=== PATIENT | female | born 1995 | race Hispanic/Latino ===

== ENCOUNTER 2021-01-16 17:44 | Emergency (ER) | payer BC ==
--- NOTE | 2021-01-16 18:46 | ULT ---
TRANSABDOMINAL AND ENDOVAGINAL PELVIC ULTRASOUND: HISTORY: patient. Vaginal bleeding x4 days. COMPARISON: None. TECHNIQUE: Transabdominal and endovaginal imaging of the pelvis is performed. Ovaries are interrogated with Ramsey -scale, color-flow and Doppler imaging and spectral wave-form analysis. FINDINGS: Uterus: There is a solid echotexture mass in the superior midportion of the uterus displacing the end ometrium to the left, compatible with a 2.3 x 2.4 x 2.8 cm fibroid. Uterus: Measures 8.0 x 4.8 x 6.4 cm. Endometrium: Within the endometrium there appears be an irregularly-shaped gestational sac. There is evidence of a yolk sac and pole. There is no evidence of heart tones. Prince-rump length is 0.42 cm, suggesting a gestational age of 6 weeks 1 day. Subchorionic hemorrhage: None. Nabothian cysts in the cervix are noted. Free fluid: Small amount of free fluid in the cul-de-sac. Right ovary: Normal echotexture. Right ovary: Measures 1.7 x 2.2 x 1.2 cm. Left ovary: Anechoic focus measuring 1.7 x 1.3 x 1.7 cm, compatible with a cyst. Left ovary mmeasures 2.6 x 2.7 x 3.4 cm. Ovarian Doppler: There is vascular flow to the left and right ovary. IMPRESSION: 1. Uterine leiomyoma. 2. Single intrauterine gestation. Gestational age by crown-rump length is 6 weeks 1 day. Absent heart tones may be due to early intrauterine versus a nonviable intrauterine . Follow-up ultrasound and serial beta hCGs are recommended. Transcribed Date/Time: 01/16/2021 7:33 PM
[2021-01-16 19:04] LABS: #Basophils 0.1 thou/uL (0.0-0.2); #Eosinphils 0.2 thou/uL (0.0-0.7); #Lymphocytes 2.7 thou/uL (1.20-3.40); #Monocytes 0.6 thou/uL (0.11-0.59); #Neutrophils 4.6 thou/uL (1.40-6.50); %Basophils 0.9 % (0.0-1.0); %Eosinophils 2.8 % (0.0-10.0); %Lymphocytes 32.9 % (21.0-51.0); %Neutrophils 56.5 % (42.0-75.0); Hemoglobin 12.9 g/dL (12.0-16.0); Mean Corpuscular HGB CONC 35.2 g/dL (32.0-36.0); Mean Corpuscular Hemoglobin 32.1 pg (27.0-31.0); Mean Platelet Volume 6.3 fL (7.4-10.4); Platelet Count 287 thou/uL (130-400); RBC Distribution Width 11.5 % (11.5-14.5); Red Blood Cell (RBC) Count 4.02 mill/uL (4.20-5.40); White Blood Cell (WBC) Count 8.2 thou/uL (4.8-10.8)
[2021-01-16 19:26] LABS: ALT (SGPT) 16 U/L (8-55); AST (SGOT) 13 U/L (5-34); Albumin 4.4 g/dL (3.5-5.0); Alkaline Phosphatase 73 U/L (40-110); Anion Gap 12 mmol/L (10-20); BUN (Urea Nitrogen) 12 mg/dL (7.0-18.7); Bilirubin, Total 0.2 mg/dL (0.2-1.2); Calc. Creatinine Clearance 0 mL/min (70-130); Calcium 9.6 mg/dL (7.8-10.44); Carbon Dioxide 22 mmol/L (22-29); Chloride 107 mmol/L (98-107); Globulin 3.6 g/dL (2.4-3.5); Glucose 99 mg/dL (70-105); Potassium 3.9 mmol/L (3.5-5.1); Sodium 137 mmol/L (136-145)
[2021-01-16 21:24] LABS: Bacteria/HPF None Seen HPF (None Seen); Bilirubin Negative (Negative); Blood, Urine 3+ (Negative); Clarity Clear (Clear); Glucose, Urine (Dipstick) Normal (Negative); Ketone, Urine Negative (Negative); Leukocyte Negative Leu/uL (Negative); Nitrite Negative (Negative); Protein, Urine (Dipstick) Negative (Neg-Trace); RBC/HPF Greater than 50 HPF (0-3); Squamous Epithelial 0-3 HPF (0-3); Urobilinogen Normal mg/dL (Less than 2); WBC/HPF 0-3 HPF (0-3)
[2021-01-18 21:53] LABS: Chlamydia by PCR Not Detected (NotDetected); GC by PCR Not Detected (NotDetected)
== END 2021-01-16 21:13 | disposition home or self-care (01) ==
LOC: ERS 17:44
DX: O20.0 Threatened abortion (principal); Z3A.01 Less than 8 weeks gestation of pregnancy
CPT/HCPCS: 36415; 76856; 80053; 81003; 81015; 84702; 85025; 86900; 86901; 87480; 87491; 87510; 87591; 87660

== ENCOUNTER 2021-01-20 12:58 | Emergency (ER) | payer BC, SELFPAY ==
[2021-01-20 13:47] LABS: #Basophils 0.1 thou/uL (0.0-0.2); #Eosinphils 0.2 thou/uL (0.0-0.7); #Lymphocytes 2.5 thou/uL (1.20-3.40); #Monocytes 0.6 thou/uL (0.11-0.59); #Neutrophils 4.1 thou/uL (1.40-6.50); %Eosinophils 2.4 % (0.0-10.0); %Lymphocytes 33.4 % (21.0-51.0); %Monocytes 7.9 % (0.0-10.0); %Neutrophils 55.2 % (42.0-75.0); Hemoglobin 12.3 g/dL (12.0-16.0); Mean Corpuscular HGB CONC 34.6 g/dL (32.0-36.0); Mean Corpuscular Hemoglobin 31.9 pg (27.0-31.0); Mean Corpuscular Volume 92.3 fL (78.0-98.0); Mean Platelet Volume 6.2 fL (7.4-10.4); Platelet Count 280 thou/uL (130-400); RBC Distribution Width 11.4 % (11.5-14.5); Red Blood Cell (RBC) Count 3.85 mill/uL (4.20-5.40); White Blood Cell (WBC) Count 7.4 thou/uL (4.8-10.8)
--- NOTE | 2021-01-20 15:13 | ULT ---
EXAM: Pelvic ultrasound HISTORY: Positive test with vaginal bleeding COMPARISON: None TECHNIQUE: Multiple grayscale and color Doppler images were obtained in a transvaginal pelvic ultraso und. Spectral analysis of the Doppler waveforms of the ovaries were performed. FINDINGS: CERVIX: Nabothian cysts are seen in the cervix. UTERUS: Normal in size without focal abnormality. ENDOMETRIAL STRIPE: 2.9 cm. It is heterogeneous and thickened. No intrauterine is visualize d. No free fluid is seen in the pelvis. RIGHT OVARY: Not visualized LEFT OVARY: Normal flow without focal mass. No ectopic is visualized. IMPRESSION: There is no evidence of canal or ectopic . The heterogeneous appearance of the e ndometrium may represent blood products within the endometrial canal from recent spontaneous .
[2021-01-20] MEDS ORDERED: Ibuprofen 200 MG TAB ONE (16:17)
== END 2021-01-20 16:20 | disposition home or self-care (01) ==
LOC: ERS 12:58
DX: O03.9 Complete or unspecified spontaneous abortion without complication (principal)
CPT/HCPCS: 36415; 76856; 84702; 85025